=== PATIENT | male | born 1990 | race American Indian/Alaskan Native ===

== ENCOUNTER 2018-02-06 04:21 | Emergency (ER) | payer SELFPAY ==
[2018-02-06] MEDS ORDERED: PERCOCET 5/325 ONE (04:50)
[2018-02-06] MEDS ORDERED: ANCEF ONE (04:51)
[2018-02-06] MEDS ORDERED: PERCOCET 5/325 PO ONE (04:53)
[2018-02-06] MEDS ORDERED: ceFAZolin 2 GM in NACL 0.9% 100 ML IV ONE (04:53)
[2018-02-06] MEDS ORDERED: BOOSTRIX IM ONE (04:53)
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
[2018-02-06] MEDS ORDERED: ceFAZolin 2 GM in NACL 0.9% 20 ML IV ONE (05:00)
[2018-02-06 05:06] LABS: Basophils # (Auto) 0.1 K/mm3 (0.0-0.1); Eosinophils # (Auto) 0.5 K/mm3 (0.0-0.4); Eosinophils % (Auto) 5.5 % (0.0-4.3); Hematocrit 42.7 % (35.5-45.6); Hemoglobin 13.8 gm/dl (11.8-15.2); Lymphocytes # (Auto) 2.9 K/mm3 (1.2-5.4); Lymphocytes % (Auto) 33.6 % (13.4-35.0); Mean Corpuscular HGB Conc 32 % (32-34); Mean Corpuscular Volume 76 fl (84-94); Monocytes # (Auto) 0.5 K/mm3 (0.0-0.8); Monocytes % (Auto) 5.8 % (0.0-7.3); Platelet Count 246 K/mm3 (140-440); Red Blood Count 5.65 M/mm3 (3.65-5.03)
[2018-02-06 05:08] LABS: Mean Corpuscular Hemoglobin 24 pg (28-32)
[2018-02-06 05:28] LABS: BUN/Creatinine Ratio 11; Blood Urea Nitrogen 8 mg/dL (9-20); Calcium 9.2 mg/dL (8.4-10.2); Hemolysis Index 8
[2018-02-06 05:29] LABS: INR 1.04 (0.87-1.13)
[2018-02-06 06:45] VITALS: BP 98/51
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
== END 2018-02-06 07:00 | disposition home or self-care (01) ==
LOC: ED 04:21
DX: S71.101A Unspecified open wound, right thigh, initial encounter (principal); F17.200 Nicotine dependence, unspecified, uncomplicated; W34.09XA Accidental discharge from other specified firearms, initial encounter; Y93.89 Activity, other specified; Y92.89 Other specified places as the place of occurrence of the external cause; Y99.8 Other external cause status
CPT/HCPCS: 36415; 73552; 80048; 85025; 85610; 90471; 90715; 96365; 96366; 99284; J0690